=== PATIENT | born 1990 ===

== ENCOUNTER 2023-09-25 13:25 | Outpatient (REF) | payer SELFPAY ==
[2023-09-25 15:46] LABS: Bacterial Vaginosis PCR POSITIVE; Candida Group PCR NOT DETECTED; Candida glab krusei PCR NOT DETECTED; Trichomonas vaginalis PCR NOT DETECTED
[2023-09-25 16:22] LABS: CT PCR NOT DETECTED (Not Detect.); NG PCR NOT DETECTED (Not Detect.)
== END 2023-09-25 13:26 | disposition home or self-care (01) ==
LOC: HO.HHCLNP 13:25
PROVIDERS: Visit Provider Advanced Practice Midwife
DX: R39.9 Unspecified symptoms and signs involving the genitourinary system (principal); N89.8 Other specified noninflammatory disorders of vagina
CPT/HCPCS: 0352U; 87086; 87491; 87591